=== PATIENT | female | born 1950 | race Caucasian/White ===

== ENCOUNTER 2017-08-16 18:18 | Emergency (ER) | payer MEDICARE ==
[~2017-08-16] VITALS: Ht 170.2 cm; Wt 85.0 kg
[~2017-08-16 18:18] MED LIST: LISI10TA3 PO; OMEP20TA93 PO
[2017-08-16] MEDS ORDERED: IOHEXOL 350 MG/ML 10 ML VIAL (for RAD DIAG) IVCONTRAST ONE (18:19)
[2017-08-16 18:31] VITALS: BP 155/94; PULSE 88; RESP 16; TEMP 98.3; O2SAT 98
[2017-08-16] MEDS ORDERED: HORMONE PILL (18:35)
[2017-08-16] MEDS ORDERED: AMLO5TAB2 PO (18:35)
[2017-08-16 18:36] VITALS: RESP 16; O2SAT 98
[2017-08-16 18:45] LABS: AUTOMATED NEUTROPHIL # 5.7 TH/MM3 (1.8-7.7); BASOPHIL # 0.1 TH/MM3 (0-0.2); BASOPHIL % 1.5 % (0.0-2.0); EOSINOPHIL # 0.1 TH/MM3 (0-0.4); EOSINOPHIL % 1.5 % (0.0-4.0); HEMOGLOBIN 14.1 GM/DL (11.6-15.3); LYMPH % 16.5 % (9.0-44.0); LYMPHOCYTE # 1.3 TH/MM3 (1.0-4.8); MEAN CELL VOLUME 91.2 FL (80.0-100.0); MEAN CORPUSCULAR HEMOGLOBIN 29.9 PG (27.0-34.0); MEAN CORPUSCULAR HGB CONC 32.8 % (32.0-36.0); MEAN PLATELET VOLUME 8.5 FL (7.0-11.0); MONO % 8.8 % (0.0-8.0); MONOCYTE # 0.7 TH/MM3 (0-0.9); NEUT % 71.7 % (16.0-70.0); PLATELET COUNT 226 TH/MM3 (150-450); RED BLOOD COUNT 4.71 MIL/MM3 (4.00-5.30); RED CELL DISTRIBUTION WIDTH 12.4 % (11.6-17.2); WHITE BLOOD COUNT 7.9 TH/MM3 (4.0-11.0)
[2017-08-16] MEDS ORDERED: SODIUM CHLORIDE 0.9% FLUSH 10 ML FLUSH IVF PRN (18:45)
[2017-08-16] MEDS ORDERED: ASPIRIN 81 MG CHEW TAB PO ONE (18:45)
--- NOTE | 2017-08-16 18:55 | PD ---
HPI . Chest pain Chief Complaint: Chest Pain Time Seen by Provider: 18:34 Travel History International Travel<30 days: No Contact w/Intl Traveler<30days: No Traveled to known affect area: No History of Present Illness HPI This patient presents with a chief complaint of left-sided chest pain. It started this afternoon. This is sharp pain that also involves the lateral chest wall in the axillary line and her left arm. She has been taking care of her sister who has been dying with cancer. The sister recently . She and her were making arrangements today. The patient's reports that she has been doing a lot of heavy lifting and cleaning oxygen takes. The patient does state that her pain is exacerbated by movement. The also states that the patient has not been eating well and has not been getting any rest. They feel that other possibilities include exhaustion and anxiety. She has not taken anything for the pain. She states that she has some associated nausea but feels that that is probably secondary to eating a large meal shortly prior to the onset of the pain. The pain is mild and rated 4 /10. PFSH Past Medical History Hx Anticoagulant Therapy: No Cancer: Yes (MALIGNANT MELANOMA ABD.) Cardiovascular Problems: Yes (HTN) Diabetes: No Diminished Hearing: No Endocrine: Yes Gastrointestinal Disorders: Yes (GERD) Glaucoma: No Genitourinary: No Hepatitis: No Hiatal Hernia: No Hypertension: Yes Immune Disorder: No Medical other: No Musculoskeletal: Yes (LEFT KNEE INT. DERANGEMENT, ARTHRITIS) Neurologic: Yes (VERETIGO ) Psychiatric: No Reproductive: Yes (PMB) Respiratory: Yes (SLEEP APNEA/ NO CPAP) Thyroid Disease: No Tetanus Vaccination: Unknown ?: Not Past Surgical History Abdominal Surgery: Yes (MELANOMA REMOVED) AICD: No Cardiac Surgery: No Ear Surgery: No Endocrine Surgery: No Eye Surgery: No Genitourinary Surgery: No Gynecologic Surgery: No Joint Replacement: No Neurologic Surgery: No Oral Surgery: Yes (CROWNS.) Pacemaker: No Thoracic Surgery: No Social History Alcohol Use: Yes (OCCASIONAL) Tobacco Use: No Substance Use: No Allergies-Medications (Allergen,Severity, Reaction): Coded Allergies: No Known Allergies (Unverified , 04/23/16) Reported Meds & Prescriptions Reported Meds & Active Scripts Active Reported [Hormone Pill] Amlodipine (Amlodipine Besylate) 5 Mg Tab Unknown Dose PO DAILY Review of Systems Except as stated in HPI: all other systems reviewed are Neg Cardiovascular: Positive: Chest Pain or Discomfort Gastrointestinal: Positive: Nausea Physical Exam Narrative GENERAL: Awake and alert and in no acute distress. SKIN: warm/dry. Normal color and turgor. HEAD: Normocephalic. Atraumatic. EYES: Pupils equal and round. No scleral icterus. No injection or drainage. ENT: No nasal bleeding or discharge. Mucous membranes pink and moist. NECK: Trachea midline. Full range of motion without pain.. CARDIOVASCULAR: Regular rate and rhythm. Heart sounds are normal. RESPIRATORY: No accessory muscle use. Clear to auscultation. Breath sounds equal bilaterally. Positive left-sided chest wall tenderness. GASTROINTESTINAL: Abdomen soft. Nontender. Bowel sounds present. Nondistended. MUSCULOSKELETAL: No obvious deformities. NEUROLOGICAL: Awake and alert. No obvious cranial nerve deficits. Motor grossly within normal limits. Normal speech. PSYCHIATRIC: Appropriate mood and affect; insight and judgment normal. Data Data Last Documented VS Vital Signs Date Time Temp Pulse Resp B/P (MAP) Pulse Ox O2 Delivery O2 Flow Rate FiO2 08/16/17 18:36 16 98 Room Air 08/16/17 18:31 98.3 88 155/94 (114) Orders Orders Electrocardiogram (08/16/17 18:34) Basic Metabolic Panel (Bmp) (08/16/17 18:34) Complete Blood Count With Diff (08/16/17 18:34) D-Dimer (08/16/17 18:34) Magnesium (Mg) (08/16/17 18:34) Prothrombin Time / Inr (Pt) (08/16/17 18:34) Act Partial Throm Time (Ptt) (08/16/17 18:34) Troponin I (08/16/17 18:34) Ecg Monitoring (08/16/17 18:34) Iv Access Insert/Monitor (08/16/17 18:34) Oximetry (08/16/17 18:34) Aspirin Chew (Aspirin Chew) (08/16/17 18:45) Sodium Chloride 0.9% Flush (Ns Flush) (08/16/17 18:45) Chest, Pa & Lat (08/16/17 18:34) Labs Laboratory Tests Test 08/16/17 18:40 White Blood Count 7.9 TH/MM3 Red Blood Count 4.71 MIL/MM3 Hemoglobin 14.1 GM/DL Hematocrit 43.0 % Mean Corpuscular Volume 91.2 FL Mean Corpuscular Hemoglobin 29.9 PG Mean Corpuscular Hemoglobin Concent 32.8 % Red Cell Distribution Width 12.4 % Platelet Count 226 TH/MM3 Mean Platelet Volume 8.5 FL Neutrophils (%) (Auto) 71.7 % Lymphocytes (%) (Auto) 16.5 % Monocytes (%) (Auto) 8.8 % Eosinophils (%) (Auto) 1.5 % Basophils (%) (Auto) 1.5 % Neutrophils # (Auto) 5.7 TH/MM3 Lymphocytes # (Auto) 1.3 TH/MM3 Monocytes # (Auto) 0.7 TH/MM3 Eosinophils # (Auto) 0.1 TH/MM3 Basophils # (Auto) 0.1 TH/MM3 CBC Comment DIFF FINAL Differential Comment MDM Medical Decision Making Medical Screen Exam Complete: Yes Emergency Medical Condition: Yes Interpretation(s) EKG shows a normal sinus rhythm with no acute ischemic changes. Differential Diagnosis Differential diagnosis of chest pain includes but is not limited to musculoskeletal pain, pulmonary embolism, acute coronary syndrome, pneumonia, pleurisy Narrative Course This patient presents with a chief complaint of left-sided chest pain. I have initiated a chest pain workup and she has been given aspirin. However, I have a low index of suspicion for his pain secondary to ACS. The more likely cause is chest wall pain secondary to heavy lifting. Diagnosis Primary Impression: Chest pain Qualified Codes: R07.9 - Chest pain, unspecified Condition: Stable Citlalli Sky MD Aug 16, 2017 18:55
[2017-08-16 18:57] LABS: CHLORIDE 106 MEQ/L (98-107); SODIUM (NA) 141 MEQ/L (136-145)
[2017-08-16 19:00] LABS: BICARBONATE 30.5 MEQ/L (21.0-32.0); CALCIUM 8.8 MG/DL (8.5-10.1)
[2017-08-16 19:01] LABS: BLOOD UREA NITROGEN 19 MG/DL (7-18); GLUCOSE,RANDOM 100 MG/DL (74-106); MAGNESIUM 2.3 MG/DL (1.5-2.5)
[2017-08-16 19:04] LABS: CREATININE 0.74 MG/DL (0.50-1.00); GLOMERULAR FILTRATION RATE 79 ML/MIN (>89)
[2017-08-16 19:09] LABS: TROPONIN I LESS THAN 0.02 NG/ML (0.02-0.05)
[2017-08-16 19:12] LABS: PROTHROMBIN TIME - PATIENT 10.1 SEC (9.8-11.6)
--- NOTE | 2017-08-16 19:21 | RADRPT ---
EXAM DATE/TIME: 08/16/2017 19:01 [facility] COMPARISON: No previous studies available for comparison. INDICATIONS : Left chest pain. MEDICAL HISTORY : None. SURGICAL HISTORY : None. ENCOUNTER: Initial ACUITY: 1 day PAIN SCORE: 7/10 LOCATION: Left chest FINDINGS: PA and lateral views of the chest demonstrate the lungs to be symmetrically aerated without evidence of mass, infiltrate or effusion. The cardiomediastinal contours are unremarkable. Osseous structure s are intact. CONCLUSION: 1. No acute cardiopulmonary disease. Carlos Flores MD on August 16, 2017 at 19:19 Board Certified Radiologist. This report was verified electronically.
[2017-08-16 19:24] LABS: D-DIMER 1.42 MG/L FEU (0.00-0.50)
[2017-08-16 20:05] VITALS: BP 146/86; PULSE 80; O2SAT 98
--- NOTE | 2017-08-16 20:46 | PD ---
Physical Exam Narrative This patient was handed off to me at end of shift by my attending physician Dr. Sky. A cardiac workup had been initiated. EKG showed sinus rhythm with no ischemic changes. In short this is a 66-year-old female here for evaluation of left-sided chest pain that radiates into the left axilla and left arm starting at 5 PM today. No associating symptoms. Patient attributed this to possible stress over the recent of her sister or possibly heavy lifting of medical equipment. The pain is worsened by movement of the left upper extremity. Past medical history of hypertension. Current medications amlodipine and "hormone pill". GENERAL: 66-year-old female resting comfortably on stretcher. No distress. SKIN: Warm and dry. HEAD: Normocephalic. EYES: No injection or drainage. NECK: Supple CARDIOVASCULAR: Regular rate and rhythm. No murmur appreciated. +TTP left anterior chest wall near axilla. Pain is also reproduced with rotation of the shoulder. RESPIRATORY: Breath sounds equal bilaterally. No accessory muscle use. GASTROINTESTINAL: Abdomen soft, non-tender, nondistended. MUSCULOSKELETAL: No cyanosis, or edema. BACK: Nontender without obvious deformity. No CVA tenderness Data Data Last Documented VS Vital Signs Date Time Temp Pulse Resp B/P (MAP) Pulse Ox O2 Delivery O2 Flow Rate FiO2 08/16/17 20:05 80 146/86 (106) 98 08/16/17 18:36 16 Room Air 08/16/17 18:31 98.3 Orders Orders Electrocardiogram (08/16/17 18:34) Basic Metabolic Panel (Bmp) (08/16/17 18:34) Complete Blood Count With Diff (08/16/17 18:34) D-Dimer (08/16/17 18:34) Magnesium (Mg) (08/16/17 18:34) Prothrombin Time / Inr (Pt) (08/16/17 18:34) Act Partial Throm Time (Ptt) (08/16/17 18:34) Troponin I (08/16/17 18:34) Ecg Monitoring (08/16/17 18:34) Iv Access Insert/Monitor (08/16/17 18:34) Oximetry (08/16/17 18:34) Aspirin Chew (Aspirin Chew) (08/16/17 18:45) Sodium Chloride 0.9% Flush (Ns Flush) (08/16/17 18:45) Chest, Pa & Lat (08/16/17 18:34) Ct Pulmonary Angiogram (08/16/17 19:35) Labs Laboratory Tests Test 08/16/17 18:40 White Blood Count 7.9 TH/MM3 Red Blood Count 4.71 MIL/MM3 Hemoglobin 14.1 GM/DL Hematocrit 43.0 % Mean Corpuscular Volume 91.2 FL Mean Corpuscular Hemoglobin 29.9 PG Mean Corpuscular Hemoglobin Concent 32.8 % Red Cell Distribution Width 12.4 % Platelet Count 226 TH/MM3 Mean Platelet Volume 8.5 FL Neutrophils (%) (Auto) 71.7 % Lymphocytes (%) (Auto) 16.5 % Monocytes (%) (Auto) 8.8 % Eosinophils (%) (Auto) 1.5 % Basophils (%) (Auto) 1.5 % Neutrophils # (Auto) 5.7 TH/MM3 Lymphocytes # (Auto) 1.3 TH/MM3 Monocytes # (Auto) 0.7 TH/MM3 Eosinophils # (Auto) 0.1 TH/MM3 Basophils # (Auto) 0.1 TH/MM3 CBC Comment DIFF FINAL Differential Comment Prothrombin Time 10.1 SEC Prothromb Time International Ratio 1.0 RATIO Activated Partial Thromboplast Time 23.9 SEC D-Dimer Quantitative (PE/DVT) 1.42 MG/L FEU Blood Urea Nitrogen 19 MG/DL Creatinine 0.74 MG/DL Random Glucose 100 MG/DL Calcium Level 8.8 MG/DL Magnesium Level 2.3 MG/DL Sodium Level 141 MEQ/L Potassium Level 3.4 MEQ/L Chloride Level 106 MEQ/L Carbon Dioxide Level 30.5 MEQ/L Anion Gap 5 MEQ/L Estimat Glomerular Filtration Rate 79 ML/MIN Troponin I LESS THAN 0.02 NG/ML [facility] Supervised Visit with DAKOTA: Yes Interpretation(s) CBC: Unremarkable BMP: Potassium 3.4-orally replaced, otherwise unremarkable PT/INR: 10.1/1 Troponin: < 0.02 D-dimer: 1.42 CT pulmonary angiogram ordered and pending. End of shift handoff to Dr Street who will follow up on CTA Diagnosis Primary Impression: Chest pain Qualified Codes: R07.9 - Chest pain, unspecified Condition: Stable Alexa Baker Aug 16, 2017 20:46
--- NOTE | 2017-08-16 21:41 | RADRPT ---
EXAM DATE/TIME: 08/16/2017 21:04 [facility] COMPARISON: No previous studies available for comparison. INDICATIONS : Left side chest pain that radiates to the left arm and neck. IV CONTRAST: 70 cc Omnipaque 350 (iohexol) IV RADIATION DOSE: 14.41 CTDIvol (mGy) MEDICAL HISTORY : Hypertension. Gastroesophageal reflux disease. Malignant melanoma. SURGICAL HISTORY : None. ENCOUNTER: Initial ACUITY: 1 day PAIN SCALE: 7/10 LOCATION: Left upper chest TECHNIQUE: Volumetric scanning of the chest was performed using a pulmonary embolism protocol MIP images were re constructed. Using automated exposure control and adjustment of the mA and/or kV according to patien t size, radiation dose was kept as low as reasonably achievable to obtain optimal diagnostic quality images. DICOM format image data is available electronically for review and comparison. Follow-up recommendations for detected pulmonary nodules are based at a minimum on nodule size and pa tient risk factors according to Fleischner Society Guidelines. FINDINGS: PULMONARY ARTERIES: No filling defects are seen in the pulmonary arteries through the segmental level. LUNGS: There is no consolidation or pneumothorax . No concerning pulmonary nodule is visualized. PLEURAE: There is no pleural thickening or pleural effusion. MEDIASTINUM: There is good visualization of the great vessels of the middle mediastinum. No evidence of mediastin al or hilar adenopathy/mass. MUSCULOSKELETAL: Within normal limits for patient age. MISCELLANEOUS: Scattered cysts in the visualized portions of the liver appeared otherwise unremarkable. CONCLUSION: 1. No CT evidence for pulmonary artery embolism. 2. Unremarkable CT examination of the chest. Carlos Flores MD on August 16, 2017 at 21:37 Board Certified Radiologist. This report was verified electronically.
[2017-08-16 21:42] VITALS: BP 135/81; PULSE 84; O2SAT 96
[2017-08-16] MEDS ORDERED: IBUP-232 PO (22:10)
--- NOTE | 2017-08-16 22:11 | PD ---
Physical Exam Time Seen by Provider: 22:05 Narrative The physician clinical nursing assistant left this patient with me to check the CT pulmonary angiogram and discharge if negative. Data Data Last Documented VS Vital Signs Date Time Temp Pulse Resp B/P (MAP) Pulse Ox O2 Delivery O2 Flow Rate FiO2 08/16/17 21:42 84 135/81 (99) 96 08/16/17 18:36 16 Room Air 08/16/17 18:31 98.3 Orders Orders Electrocardiogram (08/16/17 18:34) Basic Metabolic Panel (Bmp) (08/16/17 18:34) Complete Blood Count With Diff (08/16/17 18:34) D-Dimer (08/16/17 18:34) Magnesium (Mg) (08/16/17 18:34) Prothrombin Time / Inr (Pt) (08/16/17 18:34) Act Partial Throm Time (Ptt) (08/16/17 18:34) Troponin I (08/16/17 18:34) Ecg Monitoring (08/16/17 18:34) Iv Access Insert/Monitor (08/16/17 18:34) Oximetry (08/16/17 18:34) Aspirin Chew (Aspirin Chew) (08/16/17 18:45) Sodium Chloride 0.9% Flush (Ns Flush) (08/16/17 18:45) Chest, Pa & Lat (08/16/17 18:34) Ct Pulmonary Angiogram (08/16/17 19:35) Iohexol 350 Inj (Omnipaque 350 Inj) (08/16/17 18:19) Labs Laboratory Tests Test 08/16/17 18:40 White Blood Count 7.9 TH/MM3 Red Blood Count 4.71 MIL/MM3 Hemoglobin 14.1 GM/DL Hematocrit 43.0 % Mean Corpuscular Volume 91.2 FL Mean Corpuscular Hemoglobin 29.9 PG Mean Corpuscular Hemoglobin Concent 32.8 % Red Cell Distribution Width 12.4 % Platelet Count 226 TH/MM3 Mean Platelet Volume 8.5 FL Neutrophils (%) (Auto) 71.7 % Lymphocytes (%) (Auto) 16.5 % Monocytes (%) (Auto) 8.8 % Eosinophils (%) (Auto) 1.5 % Basophils (%) (Auto) 1.5 % Neutrophils # (Auto) 5.7 TH/MM3 Lymphocytes # (Auto) 1.3 TH/MM3 Monocytes # (Auto) 0.7 TH/MM3 Eosinophils # (Auto) 0.1 TH/MM3 Basophils # (Auto) 0.1 TH/MM3 CBC Comment DIFF FINAL Differential Comment Prothrombin Time 10.1 SEC Prothromb Time International Ratio 1.0 RATIO Activated Partial Thromboplast Time 23.9 SEC D-Dimer Quantitative (PE/DVT) 1.42 MG/L FEU Blood Urea Nitrogen 19 MG/DL Creatinine 0.74 MG/DL Random Glucose 100 MG/DL Calcium Level 8.8 MG/DL Magnesium Level 2.3 MG/DL Sodium Level 141 MEQ/L Potassium Level 3.4 MEQ/L Chloride Level 106 MEQ/L Carbon Dioxide Level 30.5 MEQ/L Anion Gap 5 MEQ/L Estimat Glomerular Filtration Rate 79 ML/MIN Troponin I LESS THAN 0.02 NG/ML [facility] Medical Record Reviewed: Yes Supervised Visit with DAKOTA: Yes Interpretation(s) The CT pulmonary angiogram is negative for DVT. The angiogram is unremarkable for any other acute cardiopulmonary abnormality. Differential Diagnosis DVT, pneumonia, coronary angiogram, pleuritic chest pain, pulmonary embolus Narrative Course The patient appears to have pleuritic chest pain. Will be given ibuprofen 600 mg 3 times daily.. She is to follow-up with her primary care physician next week. Diagnosis Primary Impression: Chest pain Qualified Codes: R07.9 - Chest pain, unspecified Additional Impression: Pleurisy Additional Instruction: As we discussed, take the ibuprofen regular, 1 tablet 3 times daily. Usually the pleurisy goes away within for 5 days when you develop high antinflammatory levels. Med/Other Pt SpecificInfo: Prescription(s) given Scripts Ibuprofen (Ibuprofen) 600 Mg Tab 600 MG PO TID, #44 TAB 0 Refills Prov: Aydin Street MD 08/16/17 Disposition: 01 DISCHARGE HOME Condition: Stable Aydin Street MD Aug 16, 2017 22:11
[2017-08-16] MEDS ORDERED: KETOROLAC TROMETHAMINE 60 MG/2 ML (IM) VIAL IVP ONE (22:15)
--- NOTE | 2017-08-16 23:05 | EKG ---
Date Performed: 08/16/2017 Time Performed: 18:23:28 PTAGE: 66 years EKG: Sinus rhythm LOW QRS VOLTAGE IN PRECORDIAL LEADS BORDERLINE ECG PREVIOUS TRACING : 12/01/2014 06.42 No significant change from previous tracing noted. DOCTOR: Jani Nice Interpretating Date/Time 08/16/2017 23:03:51
== END 2017-08-16 22:33 | disposition home or self-care (01) ==
LOC: PHEFT 18:18
DX: R07.9 Chest pain, unspecified (principal); R09.1 Pleurisy; R94.31 Abnormal electrocardiogram [ECG] [EKG]; I10 Essential (primary) hypertension; K21.9 Gastro-esophageal reflux disease without esophagitis; G47.30 Sleep apnea, unspecified; M19.90 Unspecified osteoarthritis, unspecified site; Z85.820 Personal history of malignant melanoma of skin
CPT/HCPCS: 71046; 71275; 80048; 83735; 84484; 85025; 85379; 85610; 85730; 93005; 96374; 99285; J1885; Q9967